=== PATIENT | male | born 1990 | race American Indian/Alaskan Native ===

== ENCOUNTER 2017-07-07 23:58 | Emergency (ER) | payer SELFPAY | END 2017-07-08 02:10 | disposition left against medical advice (07) | LOC: ED 23:58 | DX: K92.2 Gastrointestinal hemorrhage, unspecified (principal); Z53.21 Procedure and treatment not carried out due to patient leaving prior to being seen by health care provider ==

== ENCOUNTER 2017-11-27 17:03 | Emergency (ER) | payer SELFPAY ==
[2017-11-27 17:51] VITALS: BP 129/85
== END 2017-11-27 20:58 | disposition left against medical advice (07) ==
LOC: ED 17:03
DX: R10.9 Unspecified abdominal pain (principal); Z53.21 Procedure and treatment not carried out due to patient leaving prior to being seen by health care provider
CPT/HCPCS: 87086

== ENCOUNTER 2021-08-05 09:48 | Emergency (ER) | payer SELFPAY ==
[2021-08-05] MEDS ORDERED: SODIUM CHLORIDE 0.9% 1000 ML 1,000 ML IV ONE (11:50)
[2021-08-05] MEDS ORDERED: ONDANSETRON 4 MG/2 ML INJ IV ONE (11:50)
[2021-08-05] MEDS ORDERED: dexAMETHasone 20 MG/5 ML VIAL IV ONE (11:50)
[2021-08-05] MEDS ORDERED: ALBUTEROL 2.5 MG/3 ML NEBU IH ONE (11:50)
[2021-08-05] MEDS ORDERED: IPRATROPIUM 0.02% NEBU 2.5 ML IH ONE (11:51)
--- NOTE | 2021-08-05 11:59 | Emergency Department Report ---
ED General Adult HPI - General Chief complaint: Weakness Stated complaint: DROWSY,COUGHING,FEVER,CONFUSED,THIRSTY Time Seen by Provider: 08/05/21 11:14 Source: patient Mode of arrival: Ambulatory Limitations: No Limitations - History of Present Illness Initial comments: Patient is a 30-year-old male presents emergency room with complaints of "not feeling well" for 1 week. Patient has associated cough, wheezing, shortness of breath, nausea, diarrhea. He states he has increased thirst. He has not been vaccinated for COVID-19. He has not been tested for COVID-19 since becoming sick. He reports that his daughters were sick with viral illnesses but they did not get tested for Covid. Past medical history of asthma. No allergies to medications. - Related Data Previous Rx's Medication Instructions Recorded Last Taken Type Albuterol Sulfate [Proventil Hfa] 1 - 2 puff IH TID PRN #1 hfa.aer.ad 08/05/21 Unknown Rx Amoxicillin/Potassium Clav 1 each PO BID 10 Days #20 tablet 08/05/21 Unknown Rx [Augmentin 875-125 Tablet] Azithromycin [Zithromax TAB] 250 mg PO QDAY 5 Days #6 tablet 08/05/21 Unknown Rx Prednisone [predniSONE 10 mg 10 mg PO .TAPER #1 tab.ds.pk 08/05/21 Unknown Rx (6-Day Pack, 21 Tabs)] Promethazine [Phenergan] 25 mg PO Q8HR PRN #10 tab 08/05/21 Unknown Rx Allergies Allergy/AdvReac Type Severity Reaction Status Date / Time No Known Allergies Allergy Verified 08/05/21 09:57 ED Review of Systems ROS: Stated complaint: DROWSY,COUGHING,FEVER,CONFUSED,THIRSTY Other details as noted in HPI Comment: All other systems reviewed and negative ED Past Medical Hx - Past Medical History Hx Kidney Stones: Yes Hx Asthma: Yes - Surgical History Additional Surgical History: Plate in left arm, internal fixation placed 2014 - Social History Smoking Status: Current Every Day Smoker Substance Use Type: None - Medications Home Medications: Home Medications Medication Instructions Recorded Confirmed Last Taken Type Albuterol Sulfate [Proventil Hfa] 1 - 2 puff IH TID PRN #1 hfa.aer.ad 08/05/21 Unknown Rx Amoxicillin/Potassium Clav 1 each PO BID 10 Days #20 tablet 08/05/21 Unknown Rx [Augmentin 875-125 Tablet] Azithromycin [Zithromax TAB] 250 mg PO QDAY 5 Days #6 tablet 08/05/21 Unknown Rx Prednisone [predniSONE 10 mg 10 mg PO .TAPER #1 tab.ds.pk 08/05/21 Unknown Rx (6-Day Pack, 21 Tabs)] Promethazine [Phenergan] 25 mg PO Q8HR PRN #10 tab 08/05/21 Unknown Rx ED Physical Exam - General Limitations: No Limitations General appearance: alert, in no apparent distress - Head Head exam: Present: atraumatic, normocephalic - Eye Eye exam: Present: normal appearance - ENT ENT exam: Present: mucous membranes moist - Respiratory Respiratory exam: Present: wheezes (bilaterally), rhonchi (bilaterally ), prolonged expiratory. Absent: respiratory distress, rales, stridor, chest wall tenderness, accessory muscle use, decreased breath sounds - Cardiovascular Cardiovascular Exam: Present: normal rhythm, tachycardia - Neurological Exam Neurological exam: Present: alert, oriented X3 - Psychiatric Psychiatric exam: Present: normal affect, normal mood - Skin Skin exam: Present: warm, dry, intact ED Course Vital Signs 08/05/21 08/05/21 08/05/21 09:57 15:19 16:01 Temperature 99.2 F 99.0 F Pulse Rate 119 H 90 Respiratory 18 18 Rate Blood Pressure 125/84 128/88 [Left] O2 Sat by Pulse 100 100 100 Oximetry ED Medical Decision Making - Lab Data Result diagrams: 08/05/21 12:28 08/05/21 12:28 Lab Results 08/05/21 08/05/21 08/05/21 Range/Units 09:55 12:28 12:28 WBC 11.5 H (4.5-11.0) K/mm3 RBC 5.07 H (3.65-5.03) M/mm3 Hgb 13.9 (11.8-15.2) gm/dl Hct 43.4 (35.5-45.6) % MCV 86 (84-94) fl MCH 27 L (28-32) pg MCHC 32 (32-34) % RDW 12.9 L (13.2-15.2) % Plt Count 243 (140-440) K/mm3 Lymph % (Auto) 16.3 (13.4-35.0) % [place] % (Auto) 8.5 H (0.0-7.3) % Eos % (Auto) 2.2 (0.0-4.3) % Baso % (Auto) 0.2 (0.0-1.8) % Lymph # (Auto) 1.9 (1.2-5.4) K/mm3 [place] # (Auto) 1.0 H (0.0-0.8) K/mm3 Eos # (Auto) 0.2 (0.0-0.4) K/mm3 Baso # (Auto) 0.0 (0.0-0.1) K/mm3 Seg Neutrophils % 72.8 H (40.0-70.0) % Seg Neutrophils # 8.4 H (1.8-7.7) K/mm3 Sodium 137 (137-145) mmol/L Potassium 4.3 (3.6-5.0) mmol/L Chloride 101.1 (98-107) mmol/L Carbon Dioxide 27 (22-30) mmol/L Anion Gap 13 mmol/L BUN 9 (9-20) mg/dL Creatinine 0.8 (0.8-1.3) mg/dL Estimated GFR > 60 ml/min BUN/Creatinine Ratio 11 % Glucose 96 (75-100) mg/dL POC Glucose 119 H (70-105) mg/dL Calcium 9.4 (8.4-10.2) mg/dL Total Bilirubin 0.70 (0.1-1.2) mg/dL AST 49 H (5-40) units/L ALT 88 H (7-56) units/L Alkaline Phosphatase 135 H (35-129) units/L Total Creatine Kinase 144 (55-170) units/L Total Protein 7.1 (6.3-8.2) g/dL Albumin 4.0 (3.9-5) g/dL Albumin/Globulin Ratio 1.3 % Vital Signs 08/05/21 08/05/21 08/05/21 09:57 15:19 16:01 Temperature 99.2 F 99.0 F Pulse Rate 119 H 90 Respiratory 18 18 Rate Blood Pressure 125/84 128/88 [Left] O2 Sat by Pulse 100 100 100 Oximetry - Radiology Data Radiology results: report reviewed Ordering Physician: FAUSTO BAEZ Date of Service: 08/05/21 Procedure(s): XR chest routine 2V Accession Number(s): [id number] cc: FAUSTO BAEZ Fluoro Time In Minutes: CHEST 2 VIEWS INDICATION / CLINICAL INFORMATION: Cough, wheezing, shortness of breath.. COMPARISON: None available. FINDINGS: SUPPORT DEVICES: None. HEART / MEDIASTINUM: No significant abnormality. LUNGS / PLEURA: Suspected faint right middle lobe airspace disease. No pneumothorax. ADDITIONAL FINDINGS: No significant additional findings. IMPRESSION: Suspected faint right middle lobe airspace disease, possibly infection in the appropriate clinical setting. Signer Name: Richmond Lopez MD Signed: 08/05/2021 12:39 PM Workstation Name: [id number] Transcribed By: PERICO Dictated By: RICHMOND LOPEZ MD Electronically Authenticated By: RICHMOND LOPEZ MD Signed Date/Time: 08/05/21 1239 DD/ 1238 TD/TT: - Medical Decision Making Patient is a 30-year-old male presents emergency room with complaints of "not feeling well" for 1 week. Patient has associated cough, wheezing, shortness of breath, nausea, diarrhea. He states he has increased thirst. He has not been vaccinated for COVID-19. He has not been tested for COVID-19 since becoming sick. He reports that his daughters were sick with viral illnesses but they did not get tested for Covid. Past medical history of asthma. No allergies to medications. Initial vitals with tachycardia which improved upon repeat. Patient was ambulated in the emergency department is able to maintain sats of 95% percent or greater on room air. On exam patient has wheezing and rhonchi bilaterally, no respiratory distress accessory muscle use. Chest x-ray Suspected faint right middle lobe airspace disease, possibly infection in the appropriate clinical setting. Labs with mild elevation LFTs, otherwise stable. Patient given medications in the emergency department and nebulizer treatment, on reexamination wheezing has significantly improved and patient is feeling much better and ready to go home. Advised patient that symptoms could be related to COVID-19 and that he would need to quarantine and receive outpatient Covid testing. Patient given prescription for medications. Advised patient Please use medication as prescribed. Increase your fluid intake over the next several days. Please avoid Tylenol and alcohol use. Follow-up with your primary care doctor for reexamination. Return to emergency room for any new or worsening symptoms. Recommend outpatient COVID-19 testing and to self quarantine for 10 days from onset of symptoms. Critical care attestation.: If time is entered above; I have spent that time in minutes in the direct care of this critically ill patient, excluding procedure time. ED Disposition Clinical Impression: Elevated LFTs Pneumonia Qualifiers: Pneumonia type: due to unspecified organism Laterality: right Lung location: lower lobe of lung Qualified Code(s): J18.9 - Pneumonia, unspecified organism Asthma exacerbation Qualifiers: Asthma severity: unspecified severity Asthma persistence: unspecified Qualified Code(s): J45.901 - Unspecified asthma with (acute) exacerbation Disposition: HOME / SELF CARE / HOMELESS Is pt being admited?: No Does the pt Need Aspirin: No Condition: Stable Instructions: Asthma, Adult, [id number], Community-Acquired Pneumonia, Adult, Bacterial Pneumonia (ED) Additional Instructions: Please use medication as prescribed. Increase your fluid intake over the next several days. Please avoid Tylenol and alcohol use. Follow-up with your primary care doctor for reexamination. Return to emergency room for any new or worsening symptoms. Recommend outpatient COVID-19 testing and to self quarantine for 10 days from onset of symptoms. Prescriptions: Amoxicillin/Potassium Clav [Augmentin 875-125 Tablet] 1 each PO BID 10 Days #20 tablet Promethazine [Phenergan] 25 mg PO Q8HR PRN #10 tab PRN Reason: vomiting Prednisone [predniSONE 10 mg (6-Day Pack, 21 Tabs)] 10 mg PO .TAPER #1 tab.ds.pk Albuterol Sulfate [Proventil Hfa] 1 - 2 puff IH TID PRN #1 hfa.aer.ad PRN Reason: wheezing, shortness of breath Azithromycin [Zithromax TAB] 250 mg PO QDAY 5 Days #6 tablet Referrals: PRIMARY CARE, [Primary Care Provider] - 3-5 Days Time of Disposition: 13:28 Print Language: ARABIC
--- NOTE | 2021-08-05 12:43 | XRay Report ---
CHEST 2 VIEWS INDICATION / CLINICAL INFORMATION: Cough, wheezing, shortness of breath.. COMPARISON: None available. FINDINGS: SUPPORT DEVICES: None. HEART / MEDIASTINUM: No significant abnormality. LUNGS / PLEURA: Suspected faint right middle lobe airspace disease. No pneumothorax. ADDITIONAL FINDINGS: No significant additional findings. IMPRESSION: Suspected faint right middle lobe airspace disease, possibly infection in the appropriate clinical se tting. Signer Name: Richmond Sarmiento MD Signed: 08/05/2021 12:39 PM Workstation Name: [id number]
[2021-08-05 13:14] LABS: Alanine Aminotransferase 88 units/L (7-56); BUN/Creatinine Ratio 11; Blood Urea Nitrogen 9 mg/dL (9-20); Calcium 9.4 mg/dL (8.4-10.2); Hemolysis Index 8
[2021-08-05 13:16] LABS: Basophils % (Auto) 0.2 % (0.0-1.8); Eosinophils # (Auto) 0.2 K/mm3 (0.0-0.4); Eosinophils % (Auto) 2.2 % (0.0-4.3); Hematocrit 43.4 % (35.5-45.6); Hemoglobin 13.9 gm/dl (11.8-15.2); Lymphocytes # (Auto) 1.9 K/mm3 (1.2-5.4); Lymphocytes % (Auto) 16.3 % (13.4-35.0); Mean Corpuscular HGB Conc 32 % (32-34); Mean Corpuscular Volume 86 fl (84-94); Monocytes % (Auto) 8.5 % (0.0-7.3); Platelet Count 243 K/mm3 (140-440); Red Blood Count 5.07 M/mm3 (3.65-5.03); Red Cell Distribution Width 12.9 % (13.2-15.2)
[2021-08-05 15:19] VITALS: BP 128/88
== END 2021-08-05 16:05 | disposition home or self-care (01) ==
LOC: ED 09:48
DX: J18.9 Pneumonia, unspecified organism (principal); J45.901 Unspecified asthma with (acute) exacerbation; R74.01 Elevation of levels of liver transaminase levels; F17.200 Nicotine dependence, unspecified, uncomplicated; Z98.890 Other specified postprocedural states; Z79.899 Other long term (current) drug therapy
CPT/HCPCS: 36415; 71046; 80053; 82550; 82962; 85025; 94640; 96361; 96374; 96375; 99284; J1100; J2405; J7030; Q0162